=== PATIENT | female | born 1970 | race Caucasian/White ===

== ENCOUNTER 2018-09-01 10:51 | Emergency (ER) | payer OTHER ==
[~2018-09-01] VITALS: Wt 61.0 kg
[2018-09-01 10:54] VITALS: BP 77/141; Wt 61.0 kg
[2018-09-01 12:10] VITALS: PULSE 165; RESP 25
--- NOTE | 2018-09-01 12:38 | ERD ---
ER Documentation Chief Complaint Chief Complaint cough x 1 week HPI 48-year-old female, previously healthy, presents the emergency department, complaining of 1 week with worsening of cough, associated with subjective fever, chest congestion and general malaise. ROS All systems reviewed and are negative except as per history of present illness. Medications Home Meds Active Scripts Inhaler, Assist Devices (Compact Space Chamber) 1 Each Spacer, EACH MC Q4H WHILE AWAKE, #1 Prov:ARIEL VARELA MD 09/01/18 Albuterol Sulfate* (Ventolin HFA*) 18 Gm Hfa.aer.ad, 2 PUFF INHALATION Q4H, #1 INHALER Prov:ARIEL VARELA MD 09/01/18 Amoxicillin* (Amoxicillin*) 500 Mg Cap, 500 MG PO TID for 7 Days, CAP Prov:ARIEL VARELA MD 09/01/18 Allergies Allergies: Coded Allergies: No Known Allergy (Unverified , 09/01/18) PMhx/Soc Medical and Surgical Hx: pt denies Medical Hx, pt denies Surgical Hx Hx Alcohol Use: No Hx Substance Use: No Hx Tobacco Use: No Smoking Status: Never smoker FmHx Family History: No diabetes, No coronary disease Physical Exam Vitals Vital Signs Date Temp Pulse Resp B/P (MAP) Pulse Ox O2 O2 Flow FiO2 Time Delivery Rate 09/01/18 99.0 165 25 98 Room Air 12:10 09/01/18 98.1 78 18 77/141 99 10:54 (120) Physical Exam Const: No acute distress Head: Atraumatic Eyes: Normal Conjunctiva ENT: Normal External Ears, Nose and Mouth. Neck: Full range of motion. No meningismus. Resp: Rhonchi to auscultation bilaterally Cardio: Regular rate and rhythm, no murmurs Abd: Soft, non tender, non distended. Normal bowel sounds Skin: No petechiae or rashes Back: No midline or flank tenderness Ext: No cyanosis, or edema Neur: Awake and alert Psych: Normal Mood and Affect Results 24 hrs Laboratory Tests Test 09/01/18 13:08 POC Beta HCG, Qualitative NEGATIVE Current Medications Medications Dose Sig/Kasandra Start Time Status Last (Trade) Ordered Route PRN Stop Time Admin Dose Reason Admin Ketorolac 30 mg ONCE STAT 09/01/18 DC 09/01/18 Tromethamine IM 12:43 09/01/18 13:30 (Toradol) 13:12 Procedures/MDM At the time of discharge, patient with nontoxic appearance, vital signs stable, no respiratory distress. Differential diagnosis include but not limited to: Respiratory infection bacterial/viral/fungal. Influenza, croup, bronchiolitis, pneumonitis, allergies, GERD. Less likely foreign body aspiration, cardiac related. Physical examination and clinical presentation consistent most likely with viral infection with early superimposed bacterial infection. During the ED course the patient remained stable, no new complaints. Treatment options and clinical impression discussed with patient who agrees with management. The patient is stable to be treated outpatient and will be discharged home. Some side effects of prescribed medications (headache, rash, nausea, vomiting, diarrhea, interactions with other medications) were reviewed. The patient needs to follow up with the primary care provider in the next 48h. If symptoms persist, worsen or new symptoms develop, then patient should return to the ED immediately. Disclaimer: Inadvertent spelling and grammatical errors are likely due to EHR/dictation software use and do not reflect on the overall quality of patient care. Also, please note that the electronic time recorded on this note does not necessarily reflect the actual time of the patient encounter. Departure Diagnosis: Primary Impression: Cough Condition: Stable Additional Instructions: Muchas rickie por [facility] para giordano servicio. Esperamos que en giordano visita a la zainab de emergencia giordano problema medico haya sido solucionado y que se sienta mucho mejor. Para estar seguros que giordano mejoria sigue en proceso, le pedimos el favor de hacer liberty jovanna de seguimiento medico con giordano doctor primario en los proximos 2-4 morales. Lleve con usted estos documentos y las medicinas recetadas. Si pallavi sintomas empeoran, NO SE ESPERE, por favor regrese a zainab de emergencia INMEDIATAMENTE. En aminata que usted no tenga un mdico de atencin primaria: Llame al mdico o clnica comunitaria de referencia que aparece abajo mejia las horas de consultorio para hacer liberty jovanna para que le vean. CLINICAS: [facility] [phone] [facility] [phone] [facility] [phone] [facility] [phone] [facility] [phone] [id number] [facility]. [phone] ARIEL VILLANUEVA MD Sep 01, 2018 12:38
[2018-09-01] MEDS ORDERED: KETOROLAC 30 MG INJ IM STA (12:43)
[2018-09-01] MEDS ORDERED: ALBU18HF INHALATION (12:46)
[2018-09-01] MEDS ORDERED: AMOX500C2 PO (12:46)
[2018-09-01] MEDS ORDERED: INHA-3 MC (12:46)
== END 2018-09-01 14:35 | disposition home or self-care (01) ==
LOC: FTE 10:51
DX: R05 Cough (principal)
CPT/HCPCS: 81025; 96372; J1885; Z7502